=== PATIENT | male | born 1945 | race Caucasian/White ===

== ENCOUNTER → 2017-01-22 | Day surgery (SDC) | payer MEDICARE ==
[~2017-01-22] VITALS: Ht 177.8 cm; Wt 82.3 kg
[~2017-01-22] MED LIST: ACETAMINOPHEN/HYDROcodone 325 MG/7.5 MG TAB PO PRN; CHLORHEXIDINE GLUCONATE 2 % 1 PACK (2 CLOTHS) TOPICAL PRN; DEXAMETHASONE SOD PHOS 4 MG/ML VIAL IV ONE; DO NOT ADM ANY ANTICOAGULANT DRUGS PRN; GLYCOPYRROLATE 1 MG/5 ML SYRINGE IV PUSH ONE; IBUP200C PO; INSULIN HUMAN REGULAR 1,000 UNITS/10 ML VIAL SQ PRN; IOHEXOL 350 MG/ML 50 ML BTL (for RAD DIAG) OTHER ONE; LACTATED RINGER'S 1000 ML IV PRN; LIDOCAINE HCL 1% PF 5 ML AMPULE OTHER ONE; METO50TA PO; METOPROLOL TARTRATE 25 MG TAB PO PRN; MORPHINE SULFATE 4 MG/ML INJ IV PUSH PRN; ONDANSETRON HCL 4 MG/2 ML VIAL IV PRN; ONDANSETRON HCL 4 MG/2 ML VIAL IV PUSH ONE; POVIDONE IODINE 5% (ANTISEPSIS KIT) 4 APPLICATIONS EACH NARE PRN; PROPOFOL 200 MG/20 ML AMP IV ONE; SODIUM CHLORID 0.9% 500 ML IV PRN; SODIUM CHLORIDE 0.9% INJ 100 ML ONE; ceFAZolin 1,000 MG/NS 100 ML IV SCH; ceFAZolin INJ 1,000 MG VIAL ONE
--- NOTE | 2017-01-22 08:16 | RADRPT ---
EXAM DATE/TIME: 01/22/2017 07:49 [place] COMPARISON: No previous studies available for comparison. INDICATIONS : Pre op lithotripsy. Right side kidney stone. MEDICAL HISTORY : Kidney stones, sinusitis, hyperlipidemia, HTN, osteoarthritis SURGICAL HISTORY : Skin cancer removal, right nephroureteral stent placement ENCOUNTER: Initial ACUITY: 1 day PAIN SCORE: 0/10 LOCATION: Bilateral Abdomen FINDINGS: Supine view of the abdomen was performed. The abdominal bowel gas pattern is normal. No abnormal ma sses, calcifications, or organomegaly is seen. The osseous structures are unremarkable. CONCLUSION: 1. No evidence of obstruction. No renal stones are identified. Kevin Ibrahim MD on January 22, 2017 at 8:13 Board Certified Radiologist. This report was verified electronically.
--- NOTE | 2017-01-22 09:52 | EKG ---
Date Performed: 01/22/2017 Time Performed: 07:52:43 PTAGE: 72 years EKG: SINUS BRADYCARDIA LEFT BUNDLE BRANCH BLOCK ABNORMAL ECG PREVIOUS TRACING : 11/30/2015 10.06 DOCTOR: Rishi Reyes Interpretating Date/Time 01/22/2017 09:50:13
--- NOTE | 2017-01-22 11:49 | PD.OP ---
Operative Report Date of Surgery: Jan 22, 2017 Preoperative Diagnosis: Right renal calculus 1.0 cm in size Postoperative Diagnosis: Same Procedure: Cystoscopy with right retrograde study and right double-J stent insertion followed by right extracorporeal shockwave lithotripsy. Anesthesia: Gen. LMA Surgeon: Robson Osborn Mechanic Driver(s): None Resident Surgeon: None Operation and Findings: 72-year-old male with history of uric acid calculi who underwent a right percutaneous nephrolithotomy last year. He presented to the office for one- year follow-up and had a 1 cm right renal calculus located in the right mid and lower pole kidney. Decision was made to bring the patient to the operating room to undergo cystoscopy with right double-J stent insertion followed by right extraportal shockwave lithotripsy. Risk and benefits were discussed preoperatively and he is willing to proceed. Patient is brought to the operating room and identified by myself as Luisejro Beavers. He is placed in dorsal lithotomy position, prepped and draped in usual sterile fashion, received preprocedure antibiotics and general LMA anesthesia was administered. 22 [place] cystoscope was inserted in the bladder valverde cystoscopy did not reveal any abnormalities. A 5 [place]tarian opening catheter was inserted into the right ureteral orifice and a retrograde study was performed. Stone was visualized in the right mid and lower pole kidney. It was over 1 cm in size. A 0.35 sensor wire was then passed through the open-ended catheter and left with a good curl in the kidney. The open-ended catheter was then removed and a 6 Gibraltarian 22 cm right double-J stent was inserted over the wire with a good curl in the kidney and in the bladder. The bladder was evacuated and he was placed in the supine position. Extraportal shockwave lithotripsy therapy commenced with a power level up to 20 and a shock rate up to 120. A total of 2500 shocks were performed to the right kidney. He tolerated the procedure well and was woken and transferred to recovery in stable condition. He'll follow-up in the office in 2 weeks and obtain a CT scan of the abdomen and pelvis prior and hopefully undergo cystoscopy with right double-J stent exchange at that time. He will need alkalinization therapy in the future to help reduce his incidence of stones. Robson Osborn DO Jan 22, 2017 11:49
[2017-01-22 13:00] VITALS: BP 184/88; PULSE 60; RESP 16; TEMP 97.5; O2SAT 99
== END | disposition home or self-care (01) ==
LOC: HSDC 07:23
PROVIDERS: ATTEND Urology
DX: N20.0 Calculus of kidney (principal); R94.31 Abnormal electrocardiogram [ECG] [EKG]
CPT/HCPCS: 00873; 00910; 50590; 52332; 74000; 93005; C2617; J0690; J1100; J2405; J3010; J7120; Q9967

== ENCOUNTER → 2017-05-01 | Day surgery (SDC) | payer MEDICARE ==
[~2017-05-01] VITALS: Ht 177.8 cm; Wt 84.8 kg
[~2017-05-01] MED LIST changes: -ACETAMINOPHEN/HYDROcodone 325 MG/7.5 MG TAB PO PRN; +ALLO100T PO; +AMPICILLIN 1 GM/NS 100 ML IV SCH; +BELLADONNA ALKALOIDS/OPIUM 60 MG SUPP RECTAL PRN; +FUROSEMIDE 40 MG/4 ML VIAL ONE; +GENTAMICIN INJ 240 MG in SODIUM CHLORIDE 0.9% INJ 100 ML IV SCH; -GLYCOPYRROLATE 1 MG/5 ML SYRINGE IV PUSH ONE; -INSULIN HUMAN REGULAR 1,000 UNITS/10 ML VIAL SQ PRN; -IOHEXOL 350 MG/ML 50 ML BTL (for RAD DIAG) OTHER ONE; -LIDOCAINE HCL 1% PF 5 ML AMPULE OTHER ONE; +LIDOCAINE HCL 1% PF 5 ML SYRINGE OTHER ONE; +MORPHINE SULFATE 2 MG/ML INJ IV PRN; -MORPHINE SULFATE 4 MG/ML INJ IV PUSH PRN; +ONDANSETRON HCL 4 MG/2 ML VIAL IV ONE; -ONDANSETRON HCL 4 MG/2 ML VIAL IV PRN; -ONDANSETRON HCL 4 MG/2 ML VIAL IV PUSH ONE; +ONDANSETRON HCL 4 MG/2 ML VIAL IV PUSH PRN; -SODIUM CHLORIDE 0.9% INJ 100 ML ONE; +VITA100021 SL; -ceFAZolin 1,000 MG/NS 100 ML IV SCH; -ceFAZolin INJ 1,000 MG VIAL ONE; +ePHEDrine/NS 25 MG/5 ML SYRINGE IV ONE; +oxyCODONE/ACETAMINOPHEN 5 MG/325 MG TAB PO PRN
[2017-05-01 06:56] LABS: AUTOMATED NEUTROPHIL # 4.1 TH/MM3 (1.8-7.7); BASOPHIL % 0.6 % (0.0-2.0); EOSINOPHIL # 0.3 TH/MM3 (0-0.4); EOSINOPHIL % 3.9 % (0.0-4.0); HEMATOCRIT 37.7 % (39.0-51.0); LYMPH % 20.3 % (9.0-44.0); LYMPHOCYTE # 1.4 TH/MM3 (1.0-4.8); MEAN CELL VOLUME 95.5 FL (80.0-100.0); MEAN CORPUSCULAR HEMOGLOBIN 32.9 PG (27.0-34.0); MEAN CORPUSCULAR HGB CONC 34.5 % (32.0-36.0); MEAN PLATELET VOLUME 7.4 FL (7.0-11.0); MONO % 14.5 % (0.0-8.0); NEUT % 60.7 % (16.0-70.0); PLATELET COUNT 221 TH/MM3 (150-450); RED BLOOD COUNT 3.94 MIL/MM3 (4.50-5.90); WHITE BLOOD COUNT 6.8 TH/MM3 (4.0-11.0)
[2017-05-01 07:22] LABS: BICARBONATE 27.1 MEQ/L (21.0-32.0); CALCIUM 8.8 MG/DL (8.5-10.1); CREATININE 0.86 MG/DL (0.60-1.30)
--- NOTE | 2017-05-01 09:09 | PD.OP ---
Operative Report Date of Surgery: May 01, 2017 Preoperative Diagnosis: Right ureteral and renal calculi Postoperative Diagnosis: Right ureteral calculus Procedure: Cystoscopy, right retrograde study, right ureteroscopy, stone extraction, right double-J stent removal Anesthesia: General LMA Surgeon: Robson Osborn Recycle Worker(s): None Resident Surgeon: None Operation and Findings: 72-year-old male with history of uric acid renal stones status post right extracorporeal shockwave lithotripsy. Patient was noted to have a few residual renal and ureteral calculi on a CT scan from January 2017. Decision made to bring the patient to the operating room to undergo cystoscopy with right ureteroscopy and possible laser lithotripsy with stone extraction. Risk and benefits were discussed preoperatively and he was willing to proceed. The patient was brought to the operating room and identified by myself as Luis Gupta. He was placed in the dorsal lithotomy position, prepped and draped in usual sterile fashion, received preprocedure antibiotics and general LMA anesthesia was administered. 22 [place] cystoscope was inserted in the bladder and using the alligator forceps the right ureteral stent was brought to the urethral meatus. A 0.35 sensor wire was then passed through the stent and up into the kidney. The flexible ureteroscope was then passed along the wire up into the ureter and the stone was visualized in the mid ureter. Using the nitinol basket, the stone was then extracted. The flexible ureteroscope was then passed up into the kidney and visualization of the entire collecting system on the right side demonstrated no evidence of any residual stones. A retrograde study was performed to confirm that were no filling defects. There were none. Decision was made not to leave a stent. The scope was removed along with the wire and he was awoken, extubated, and transferred recovery in stable condition. He tolerated the procedure well. Robson Osborn DO May 01, 2017 09:09
[2017-05-01 10:23] VITALS: BP 180/84; PULSE 50; RESP 16; TEMP 96.7; O2SAT 97
== END | disposition home or self-care (01) ==
LOC: HSDC 05:54
PROVIDERS: ATTEND Urology
DX: N20.2 Calculus of kidney with calculus of ureter (principal); I10 Essential (primary) hypertension; E78.5 Hyperlipidemia, unspecified; Z01.818 Encounter for other preprocedural examination
CPT/HCPCS: 00910; 52332; 52352; 80048; 82365; 82370; 85025; 88300; 94150; C1726; C1769; J0290; J1100; J1580; J1940; J2405; J3010; J7120